=== PATIENT | male | born 1955 | race Caucasian/White ===

== ENCOUNTER → 2021-07-21 | Outpatient (CLI) | payer MEDICARE ==
--- NOTE | 2021-07-21 13:15 | PFTRPT ---
Site: [facility], [address] [place], [address] ID: [id number] Name: MAGUE CAPONE JR Visit Date: 07/21/2021 Second ID: [id number] Referring Doctor: Travis Byrne MD Reviewing Doctor: Travis Byrne MD Broom Builder: Nate ESPINOZA, MEMO Age: 66 : 1955 Sex: Male Race: Height: 70.00 Inches Weight: 281.00 Lbs BSA: 2.41 Order IDs: [id number] Requested Test(s): <RESP-PFT.PFT B/A> Diagnosis: R04.2 test appear to be valid, although the ATS standard for "end of test" was not met. Pt was given four puffs of albuterol for post bronchodilator. Review Status: Not Reviewed Pre-Bronch Post-Bronch Pred Actual %Pred Actual %Chng SPIROMETRY FVC (L) 4.62 3.77 81 3.53 -6 FEV1 (L) 3.45 2.88 83 2.81 -2 FEV1/FVC (%) 75 76 101 80 4 FEF 25% (L/sec) 8.32 5.56 66 5.59 FEF 50% (L/sec) 5.17 3.44 66 3.25 -5 FEF 75% (L/sec) 1.54 0.87 56 0.62 -28 FEF 25-75% (L/sec) 2.75 2.45 88 2.14 -12 FEF Max (L/sec) 8.87 5.60 63 6.79 21 FIVC (L) 3.53 3.59 1 FIF 50% (L/sec) 4.60 4.87 105 4.40 -9 FIF Max (L/sec) 5.00 4.49 -10 MVV (L/min) 135 95 70 Expiratory Time (sec) 5.59 5.02 -10 Back Extrap Vol (L) 0.14 0.12 -16 Time To FEFmax (sec) 0.148 0.103 -30 LUNG VOLUMES SVC (L) 4.67 4.36 93 IC (L) 3.33 3.34 100 ERV (L) 1.34 1.01 75 TGV (L) 3.68 3.44 93 RV (Pleth) (L) 2.34 2.43 103 TLC (Pleth) (L) 7.01 6.79 96 RV/TLC (Pleth) (%) 34 36 105 DIFFUSION DLCOunc (ml/min/mmHg) 27.40 28.69 104 DLCOcor (ml/min/mmHg) 27.40 30.35 110 DL/VA (ml/min/mmHg/L) 3.91 4.93 126 VA (L) 7.01 6.15 87 BHT (sec) 9.84 IVC (L) 3.49 TLC (SB) (L) 6.30 AIRWAYS RESISTANCE Raw (cmH2O/L/s) 1.45 0.96 66 Gaw (L/s/cmH2O) 1.03 1.07 103 sRaw (cmH2O*s) 4.76 3.51 73 sGaw (1/cmH2O*s) 0.20 0.29 145 BLOOD GASES Hgb (gm/dL) 12.8
== END ==
LOC: M CARPUL 12:16
PROVIDERS: ATTEND Internal Medicine Pulmonary Disease
DX: R04.2 Hemoptysis (principal)

== ENCOUNTER 2021-08-05 06:33 | Day surgery (SDC) | payer MEDICARE ==
[~2021-08-05] VITALS: Ht 177.8 cm; Wt 129.3 kg
[~2021-08-05 06:33] MED LIST: ALBUTEROL SULFATE 2.5 MG/0.5 ML INH NEB SOLN INH ONE; DIPH25CA32 PO; LIDOCAINE 4% INJ 5ML AMP NEB ONE; LISI20TA35 PO; LR 1,000 ML IV ONE; PRES1CHW PO; SING10TA32 PO; SULF500T41 PO; TUME1CAP PO
[2021-08-05] MEDS ORDERED: EPINEPHrine 1MG/10ML SYRINGE 1.5IN As Ordered ONE ×2 (08:25→09:05)
[2021-08-05] MEDS ORDERED: CETACAINE SPRAY 5GM As Ordered ONE (08:25)
[2021-08-05] MEDS ORDERED: fentaNYL 100 MCG/2 ML INJECTION As Ordered ONE (08:26)
[2021-08-05] MEDS ORDERED: LIDOCAINE 2% 100MG/5ML SDV (FOR ANES.) As Ordered ONE (08:26)
[2021-08-05] MEDS ORDERED: ROCURONIUM BROMIDE 50 MG/5 ML VIAL As Ordered ONE (08:26)
[2021-08-05] MEDS ORDERED: propofoL 200 MG/20 ML VIAL As Ordered ONE (08:26)
[2021-08-05] MEDS ORDERED: MIDAZOLAM INJ 2MG/2ML VIAL (J2250 PER 1MG) As Ordered ONE (08:27)
[2021-08-05 08:42] LABS: HEMOGLOBIN 14.5 g/dl (13.5-17.5); MEAN CORPUSCULAR HEMOGLOBIN 31.9 pg (27.0-33.0); MEAN CORPUSCULAR VOLUME 96.7 fl (80.0-96.0); PLATELET COUNT, AUTOMATED 158 10^3/uL (150-450); RED BLOOD COUNT 4.55 10^6/uL (4.30-6.10); WHITE BLOOD COUNT 7.5 10^3/uL (4.0-10.0)
[2021-08-05 08:53] LABS: INR 1.04
[2021-08-05 08:54] LABS: PARTIAL THROMBOPLASTIN TIME 32.3 SECONDS (25.9-37.0)
[2021-08-05] MEDS ORDERED: THROMBIN SOLN 5,000 UNITS VIAL As Ordered ONE (09:04)
[2021-08-05] MEDS ORDERED: SUGAMMADEX SODIUM 500 MG/5 ML VIAL (BRIDION) As Ordered ONE (09:11)
[2021-08-05] MEDS ORDERED: fentaNYL 100 MCG/2 ML INJECTION IV PRN (09:50)
[2021-08-05] MEDS ORDERED: ONDANSETRON 4MG/2ML VIAL IV PRN (09:50)
[2021-08-05] MEDS ORDERED: LR 1,000 ML IV SCH (09:50)
[2021-08-05 10:19] VITALS: BP 129/59
== END 2021-08-05 10:30 | disposition home or self-care (01) ==
LOC: M SDC 06:33
PROVIDERS: ATTEND Internal Medicine Pulmonary Disease
DX: T17.508A Unspecified foreign body in bronchus causing other injury, initial encounter (principal); R05.9 Cough, unspecified; G47.33 Obstructive sleep apnea (adult) (pediatric); R04.2 Hemoptysis; J30.9 Allergic rhinitis, unspecified; Y92.89 Other specified places as the place of occurrence of the external cause
CPT/HCPCS: 31635; 36415; 85027; 85610; 85730; 88300; J2250; J3010